=== PATIENT | male | born 1965 | race Caucasian/White ===

== ENCOUNTER 2022-10-18 23:58 | Observation (INO) | payer OTHER, BC ==
[2022-10-19] MEDS ORDERED: Morphine 4 MG/ML Syringe IVPUSH ONE ×2 (01:43→04:42)
[2022-10-19] MEDS ORDERED: Acetaminophen/HYDROcodone 325-10 MG Tab PO ONE (02:32)
[2022-10-19] MEDS ORDERED: Orphenadrine 100 MG Tab.ER PO ONE (04:06)
[2022-10-19] MEDS ORDERED: fentaNYL 100 MCG/2 ML SDV IVPUSH ONE (04:41)
[2022-10-19] MEDS ORDERED: HYDROmorphone 0.5 MG/0.5 ML Syringe IVPUSH ONE (05:40)
[2022-10-19] MEDS ORDERED: Iopamidol 755 Mg/ML 100 ML Bottle IVPUSH ONE (05:54)
[2022-10-19] MEDS ORDERED: Sodium Chloride 0.9% 100 ML IV SCH (06:00)
[2022-10-19] MEDS ORDERED: Ondansetron 4 MG/2 ML SDV IVPUSH ONE (06:21)
[2022-10-19] MEDS ORDERED: Ondansetron 4 MG Tab.DIS PO PRN (07:26)
[2022-10-19] MEDS ORDERED: Ondansetron 4 MG/2 ML SDV IV PRN (07:26)
[2022-10-19] MEDS ORDERED: Sodium Chloride 0.9% 10 ML Syringe FLUSH PRN (07:26)
[2022-10-19] MEDS ORDERED: Docusate Sodium 100 MG Cap PO PRN (07:26)
[2022-10-19] MEDS ORDERED: HYDROmorphone 1 MG/ML Syringe IVPUSH ONE (08:27)
[2022-10-19] MEDS: Heparin Sodium 5,000 Units/ML Vial SUBCUT SCH ×2 (10:36→21:33)
[2022-10-19] MEDS: oxyCODONE ER 20 MG TAB.ER PO SCH ×2 (10:36→21:36)
[2022-10-19] MEDS ORDERED: Aluminum Hydroxide/Magnesium Hydroxide/Simethicone Susp 30 ML Cup PO PRN (11:50)
[2022-10-19] MEDS: Insulin Lispro 100 Unit/ML 3 ML KwikPen SUBCUT SCH ×3 (12:03→21:34)
[2022-10-19] MEDS: Acetaminophen/oxyCODONE 325-5 MG Tab PO PRN (13:58)
[2022-10-19] MEDS: Diazepam 5 MG Tab PO PRN ×2 (15:43→21:42)
[2022-10-19] MEDS: Losartan 100 MG Tab PO SCH (17:12)
[2022-10-19] MEDS: Hydrochlorothiazide 25 MG Tab PO SCH (17:12)
[2022-10-19] MEDS ORDERED: Cyclobenzaprine 10 MG Tab PO PRN (17:52)
[2022-10-19] MEDS: amLODIPine 10 MG Tab PO SCH (21:35)
[2022-10-19] MEDS: Metoprolol Succinate 50 MG Tab.ER PO SCH (21:35)
[2022-10-20] MEDS: Insulin Lispro 100 Unit/ML 3 ML KwikPen SUBCUT SCH ×4 (08:48→21:38)
[2022-10-20] MEDS: Metoprolol Succinate 50 MG Tab.ER PO SCH ×2 (08:50→21:39)
[2022-10-20] MEDS: DULoxetine 30 MG Cap PO SCH (08:51)
[2022-10-20] MEDS: Losartan 100 MG Tab PO SCH (08:51)
[2022-10-20] MEDS: oxyCODONE ER 20 MG TAB.ER PO SCH ×2 (08:51→21:40)
[2022-10-20] MEDS: Hydrochlorothiazide 25 MG Tab PO SCH (08:51)
[2022-10-20] MEDS: atorvaSTATin 40 MG Tab PO SCH (08:52)
[2022-10-20] MEDS: Heparin Sodium 5,000 Units/ML Vial SUBCUT SCH ×2 (08:52→21:39)
[2022-10-20] MEDS: Diazepam 5 MG Tab PO PRN ×2 (08:56→21:40)
[2022-10-20] MEDS: Acetaminophen/oxyCODONE 325-5 MG Tab PO PRN (11:29)
[2022-10-20] MEDS ORDERED: Cyclobenzaprine 10 MG Tab PO PRN (13:50)
[2022-10-20] MEDS: amLODIPine 10 MG Tab PO SCH (21:39)
[2022-10-21] MEDS: Acetaminophen/oxyCODONE 325-5 MG Tab PO PRN (07:24)
[2022-10-21 08:03] VITALS: BP 140/78; PULSE 100
[2022-10-21] MEDS: Insulin Lispro 100 Unit/ML 3 ML KwikPen SUBCUT SCH (08:53)
[2022-10-21] MEDS: Heparin Sodium 5,000 Units/ML Vial SUBCUT SCH (08:54)
[2022-10-21] MEDS: DULoxetine 30 MG Cap PO SCH (08:55)
[2022-10-21] MEDS: Metoprolol Succinate 50 MG Tab.ER PO SCH (08:55)
[2022-10-21] MEDS: Hydrochlorothiazide 25 MG Tab PO SCH (08:55)
[2022-10-21] MEDS: Losartan 100 MG Tab PO SCH (08:56)
[2022-10-21] MEDS: atorvaSTATin 40 MG Tab PO SCH (08:56)
[2022-10-21] MEDS: oxyCODONE ER 20 MG TAB.ER PO SCH (10:17)
== END 2022-10-21 10:39 | disposition home or self-care (01) ==
LOC: JD.ED 23:58 → JD.MS 10-19 07:26
PROVIDERS: ADMIT Hospitalist; ATTEND Hospitalist
DX: S22.42XA Multiple fractures of ribs, left side, initial encounter for closed fracture (principal); R94.31 Abnormal electrocardiogram [ECG] [EKG]; M43.8X4 Other specified deforming dorsopathies, thoracic region; E11.65 Type 2 diabetes mellitus with hyperglycemia; I25.10 Atherosclerotic heart disease of native coronary artery without angina pectoris; E78.00 Pure hypercholesterolemia, unspecified; I10 Essential (primary) hypertension; I71.21 Aneurysm of the ascending aorta, without rupture; Z79.82 Long term (current) use of aspirin; Z79.84 Long term (current) use of oral hypoglycemic drugs; Z79.899 Other long term (current) drug therapy; W22.8XXA Striking against or struck by other objects, initial encounter
CPT/HCPCS: 36415; 71250; 71275; 80053; 82947; 84484; 85025; 85027; 85379; 85610; 85730; 93005; A9270; J1170; J1644; J1815; J2270; J2405; J3360; J3490; Q9967; 99221; 99231; 99238